=== PATIENT | female | born 1930 | race Caucasian/White ===

== ENCOUNTER → 2017-04-25 | Day surgery (SDC) | payer MEDICARE, OTHER ==
[~2017-04-25] MED LIST: ACETAMINOPHEN325 MG PO; ALLEGRA; AMBIEN CR; AMBIEN CR PO; AMBIEN12.5 M1 PO; ASPIRIN81 M2 PO; ASPIRINEC PO; ATENOLOL PO; B-COMPLEX W/VIT1 TA1 PO; BENICAR HCT 40-1 TA1; BENICAR HCT 40-1 TA1 PO; BENICAR HCT 40-1 TA2; BENICAR PO; BISACODYL EC5 MG PO; BUMETANIDE2 M1 PO; BUMEX PO; BUMEX2 MG PO; CALCIUM 600 +1 EAC3 PO; CALTRATE PLUS T1 TAB; CERTAGEN PO; COUMADIN PO; COUMADIN3 MG PO; DICLOFENAC; DICLOFENAC PO; DIFLUCAN PO; ECOTRIN81 M1 PO; EQUATE VISION; FEMARA2.5 MG; FERROUS SULFATE PO; FISH OIL 1,0001 CAP PO; FISH OIL 1,001000 MG PO; FISH OIL 1,2001 EAC1 PO; FLEXERIL10 MG PO; HYDROCODON-ACE1 EAC5 PO; HYDROCODON-ACE1 EAC7 PO; HYDROCODON-ACE1 EACH PO; HYDROCODONE-APA1 T56 PO; IRON PO; IRON1 TA1 PO; IRON45 MG PO; LEVAQUIN; LORTAB 5/500 TA1 TA1 PO; MACRODANTIN PO; METOPROLOL SUCC25 MG PO; MILK OF MAGNESIA PO; MOBIC PO; MULTI-VITAMIN1 TAB; NIACIN PO; OMEPRAZOLE40 M1 PO; PRAVACHOL PO; PREDNISONE10 MG PO; PREVACID; PROTONIX PO; RESTASIS32 EA; RESTASIS32 EA OU; SKELAXIN PO; STOOL SOFTENER50 MG PO; SULAR PO; SULAR20 MG PO; VICODIN 5/1 TAB 5/50 PO; VISION; VISION PO; VIT C; VIT E PO; VITAMIN B-121000 MCG PO; VITAMIN B122500 MCG PO; VITAMIN B6 PO; VITAMIN C PO; VITAMIN E400 UNI4 PO; VOLTAREN25 MG PO; [UNRECOGNIZED DRUG - OTHER]
--- NOTE | ~2017-04-25 | OR ---
Unit #: [id number] #: [id number] Patient: JOSETTE TAVAREZ [id number] [address] [place], [place] [address] [id number] O MR#: [id number] NAME: JOSETTE TAVAREZ. ROOM: Date of Procedure: 04/25/2017 Admission Date: 04/25/2017 Surgeon: Michael Patel M.D. : 1930 Primary Care Physician: Guille Ford M.D. SUR[facility]ERY CENTER OPERATIVE NOTE PROCEDURE PERFORMED Lumbar epidural steroid injection under x-ray guided needle placement. PREOPERATIVE DIAGNOSES 1. Acute lumbar radiculitis. 2. Spinal stenosis, lumbosacral spine. 3. Degenerative joint disease, lumbosacral spine. 4. Degenerative disk disease, lumbosacral spine. INDICATIONS FOR PROCEDURE The patient presents today with the years long history of lumbar radicular pain, which has been variously treated with various degrees of success over the years with conservative measures. Over the course of the past few months, the patient states her pain has begun to increase in a crescendo pattern with her radiculitis becoming more pronounced as well as becoming right-sided as well as left-sided. She has failed to respond to her usual ongoing conservative measures during these time periods, which include both nonsteroidal anti-inflammatories and physical therapy. She presents today referred for epidural steroid injection. After discussing risks and benefits of proceeding today with an empiric epidural steroid injection at the L4-L5 level with CT scan prior to next visit, the patient agreed this would be the appropriate course of action. DESCRIPTION OF PROCEDURE She was then taken to the operating room, where she was prepped and draped in a sterile manner. Standard monitors were applied. She refused all forms of sedation and lumbar epidural space accessed at L4-L5 level using loss of resistance technique and x-ray guidance. Needle placement was confirmed with injection of 2 mL of Omnipaque. There was good superior and inferior flow at this L4-L5 level access point. Following successful needle placement confirmation, the patient received an injectate containing 4 mL normal saline and 80 mg of methylprednisolone. She tolerated this procedure well. She was discharged home with followup instructions, which include return to this clinic on 05/02/2017. She is to call us if her CT scan would not be completed by that date and we will reschedule. Dictated by... Rosa Hudson/mir Unit #: [id number] #: [id number] Patient: JOSETTE TAVAREZ TD: 04/26/2017 03:20 JOB #: [id number] CC: Arthur Ellington M.D. SUR[facility]ERY CENTER OPERATIVE NOTE Page 1 of 1 X Chino Patel MD X PROCEDURE OPERATIVE NOTE
== END | disposition home or self-care (01) ==
LOC: CCSC 12:50
DX: M51.17 Intervertebral disc disorders with radiculopathy, lumbosacral region (principal); M47.27 Other spondylosis with radiculopathy, lumbosacral region; M48.07 Spinal stenosis, lumbosacral region; K21.9 Gastro-esophageal reflux disease without esophagitis; M19.90 Unspecified osteoarthritis, unspecified site; Z87.01 Personal history of pneumonia (recurrent); Z86.11 Personal history of tuberculosis; Z88.1 Allergy status to other antibiotic agents; Z88.2 Allergy status to sulfonamides; Z88.6 Allergy status to analgesic agent; Z88.8 Allergy status to other drugs, medicaments and biological substances; Z79.82 Long term (current) use of aspirin; Z79.891 Long term (current) use of opiate analgesic; Z79.899 Other long term (current) drug therapy; Z90.12 Acquired absence of left breast and nipple; Z90.49 Acquired absence of other specified parts of digestive tract; Z90.710 Acquired absence of both cervix and uterus; Z96.653 Presence of artificial knee joint, bilateral; Z98.41 Cataract extraction status, right eye; Z98.42 Cataract extraction status, left eye; Z98.890 Other specified postprocedural states
CPT/HCPCS: J1040; J2250

== ENCOUNTER → 2017-05-03 | Outpatient (CLI) | payer MEDICARE, OTHER ==
--- NOTE | ~2017-05-03 | CT98 ---
[facility] A Service of [facility] RADIOLOGY TEXT RESULTS PATIENT: JOSETTE TAVAREZ LOCATION: [facility] : 30 UNIT #: [id number] AGE: [address]: Chino Patel MD SEX: F ORDER DR: [id number] [facility] [address] [place], [place] [address] [id number] O MR#: [id number] Acc #: [id number] NAME: JOSETTE TAVAREZ. : 1930 SEX: F STUDY DATE/TIME: 05/03/2017 12:47 UNIT: [facility] ROOM: STUDY DESCRIPTION: CT Lumbar Spine Wo Cont Attending Physician: Michael Patel M.D. Referring Physician: Michael Patel M.D. Ordering Physician: Michael Patle M.D. Primary Care Physician: Guille Ford M.D. MEDICAL IMAGING REPORT This report is preliminary unless electronic signature is present EXAM Lumbar spine CT. HISTORY Chronic low back pain over the past 5 years. TECHNIQUE Axial images were obtained from the lower thoracic spine to the sacrum and evaluated at bone and soft tissue windows with multiplanar reformats and compared to a previous examination from 05/03/2011. This CT exam was performed with one or more of the following radiation dose reduction techniques: automatic exposure control, adjustment of mA and/or kV according to patient size, and iterative reconstruction. FINDINGS Advanced degenerative changes are seen throughout the lumbar spine accompanied by a mid lumbar dextroscoliosis. Since the previous examination, the degree of scoliosis has worsened. There is significant progression of degenerative disc disease across L1-L2, especially on the right side of the disc which has collapsed progressively with increased osteophyte formation. At L2-3, there is lateral subluxation of L2 to the left with respect to L3. This is unchanged. There is more collapse of the left side of L3 associated with the endplate degenerative changes compared to the previous exam and there is a little more osteophyte formation. At L3-4, degenerative changes in the disc are stable. At L4-5, there is lateral subluxation of L4 to the right with respect to L5 and this degree of subluxation is unchanged. There is a new Schmorl node in the upper endplate of L5. At L5-S1, there is advanced degenerative change showing little progression from the previous exam. At L1-L2, right foraminal narrowing is slightly worse since the previous examination. [facility] A Service of [facility] RADIOLOGY TEXT RESULTS PATIENT: JOSETTE TAVAREZ LOCATION: [facility] : 30 UNIT #: [id number] AGE: [address]: Chino Patel MD SEX: F ORDER DR: At L2-L3. right foraminal narrowing is also slightly increased. Central stenosis at L2-3 has worsened. There is more ossification of the ligamentum flava at this level. At L3-4, central stenosis is moderate but unchanged. At L4-5, central stenosis is moderately severe and slightly worse since the previous examination from progression of disc and facet disease. At L5-S1, there is moderate central stenosis that is unchanged. No fractures are seen. No destructive bone lesions are noted. IMPRESSION Advanced multilevel lumbar degenerative disc and facet disease as described above level by level. There has been significant progression of disease since the previous scan 6 years ago, particularly involving the right side of L1-L2, the left side of L2-3, and the right side of L4-5. Subluxation of L2 laterally with respect to L3 and of L4 laterally with respect to L5 has not changed significantly. No acute fractures are seen. Central spinal stenosis is present generally to a moderate to moderately severe degree at L2-3, L3-4, and L4-5 with slight progression since the previous exam. STAT * RESULT Dictated by... Juan Diego Fairbanks M.D. THIS IS AN ELECTRONICALLY VERIFIED REPORT Juan Diego Fairbanks M.D. at 05/05/2017 10:23 AM KRIS/josse TD: 05/04/2017 14:27 JOB #: [id number] MEDICAL IMAGING REPORT Page 1 of 1 COPY
== END | disposition home or self-care (01) ==
LOC: CCAT 11:42
DX: M51.16 Intervertebral disc disorders with radiculopathy, lumbar region (principal)
CPT/HCPCS: 72131

== ENCOUNTER → 2017-05-04 | Day surgery (SDC) | payer MEDICARE, OTHER ==
--- NOTE | ~2017-05-04 | OR ---
Unit #: [id number] #: [id number] Patient: JOSETTE TAVAREZ [id number] [address] [place], [place] [address] [id number] O MR#: [id number] NAME: JOSETTE TAVAREZ. ROOM: Date of Procedure: 05/04/2017 Admission Date: 05/04/2017 Surgeon: Michael Patel M.D. : 1930 Attending Physician: Michael Patel M.D. Primary Care Physician: Guille Ford M.D. SURGERY CENTER OPERATIVE NOTE PROCEDURE PERFORMED Lumbar epidural steroid injection under x-ray guided needle placement. PREOPERATIVE DIAGNOSES 1. Acute lumbar radiculitis. 2. Spinal stenosis, lumbosacral spine. 3. Degenerative joint disease, lumbosacral spine. 4. Degenerative disk disease, lumbosacral spine. INDICATIONS FOR PROCEDURE The patient presents today status post one previous empiric epidural steroid injection for an acute radiculitis, which had failed to respond to conservative therapy. The patient states that she got very little relief from that epidural steroid injection; however, in the interim between that injection and today, she has had a repeat of her diagnostic studies which show worsening at L4-L5 and L2-L3. After discussing risks and benefits of proceeding today with a second epidural steroid injection utilizing the dual needle approach at the above-mentioned levels, the patient agreed this would be the appropriate course of action. We also discussed return to this clinic on 08/10/2017 for long-term followup. DESCRIPTION OF PROCEDURE Following these discussions, the patient was taken to the operating room, where she was prepped and draped in a sterile manner. Standard monitors were applied. She refused all forms of sedation and lumbar epidural space accessed at the L4-L5 and L2-L3 levels using loss of resistance technique and x-ray guidance. There was good superior and inferior flow at both levels as needle placement was confirmed with the injection of 2 mL of Omnipaque. Total x-ray time for this dual needle placement was 16 seconds. Following successful needle placement confirmation at the above described levels, the patient received an injectate containing 4 mL normal saline and 40 mg of methylprednisolone at each level for a total injectate volume of 8 mL of normal saline and 80 mg of methylprednisolone. She tolerated this procedure well. She was discharged home with followup instructions, which include return dates as described above. Dictated by... Rosa Hudson/mir TD: 05/05/2017 00:28 Unit #: [id number] #: [id number] Patient: JOSETTE TAVAREZ JOB #: [id number] CC: Arthur Ellington M.D. SURGERY CENTER OPERATIVE NOTE Page 1 of 1 X Chino Patel MD X PROCEDURE OPERATIVE NOTE
== END | disposition home or self-care (01) ==
LOC: CCSC 13:28
DX: M51.17 Intervertebral disc disorders with radiculopathy, lumbosacral region (principal); M47.27 Other spondylosis with radiculopathy, lumbosacral region; M48.07 Spinal stenosis, lumbosacral region; K21.9 Gastro-esophageal reflux disease without esophagitis; Z87.01 Personal history of pneumonia (recurrent); Z86.11 Personal history of tuberculosis; Z88.1 Allergy status to other antibiotic agents; Z88.2 Allergy status to sulfonamides; Z88.6 Allergy status to analgesic agent; Z88.8 Allergy status to other drugs, medicaments and biological substances; Z79.891 Long term (current) use of opiate analgesic; Z79.82 Long term (current) use of aspirin; Z79.899 Other long term (current) drug therapy; Z90.49 Acquired absence of other specified parts of digestive tract; Z90.12 Acquired absence of left breast and nipple; Z90.710 Acquired absence of both cervix and uterus; Z96.653 Presence of artificial knee joint, bilateral; Z98.41 Cataract extraction status, right eye; Z98.42 Cataract extraction status, left eye; Z98.890 Other specified postprocedural states
CPT/HCPCS: J1040; J2250

== ENCOUNTER 2017-05-27 21:12 | Emergency (ER) | payer MEDICARE, OTHER ==
--- NOTE | ~2017-05-27 | CR72 ---
[facility] A Service of [facility] RADIOLOGY TEXT RESULTS PATIENT: JOSETTE TAVAREZ LOCATION: [facility] : 30 UNIT #: [id number] AGE: [address]: Juan Diego Jang MD SEX: F ORDER DR: [id number] [facility] [address] [place], [place] [address] [id number] E MR#: [id number] Acc #: [id number] NAME: JOSETTE TAVAREZ. : 1930 SEX: F STUDY DATE/TIME: 05/27/2017 22:43 UNIT: [facility] ROOM: STUDY DESCRIPTION: CR Chest Single View Portable Attending Physician: Juan Diego Jang M.D. Ordering Physician: Juan Diego Jang M.D. Primary Care Physician: Guille Ford M.D. MEDICAL IMAGING REPORT This report is preliminary unless electronic signature is present EXAM Portable chest INDICATIONS Cough and shortness of air for the past few days. PROCEDURE Frontal view of the chest COMPARISON 10/25/2014 FINDINGS Heart size is unchanged. There is no new dense consolidation visible pleural fluid or pneumothorax. IMPRESSION No active process. No change since 2013 Dictated by... Mykel Barragan M.D. THIS IS AN ELECTRONICALLY VERIFIED REPORT Mykel Barragan M.D. at 05/28/2017 9:56 PM ANNALEE/patricia TD: 05/28/2017 03:59 JOB #: [id number] MEDICAL IMAGING REPORT Page 1 of 1 COPY
--- NOTE | ~2017-05-27 | EKG ---
PATIENT: JOSETTE TAVAREZ UNIT #: [id number] Ventricular Rate: 96 BPM Atrial Rate: 96 BPM P-R Interval: 206 ms QRS Duration: 96 ms Q-T Interval: 370 ms QTC Calculation(Bezet): 467 ms P Matthews: 97 degrees Calculated R Matthews: 3 degrees Calculated T Matthews: 14 degrees Diagnosis Line: Sinus rhythm with occasional Premature ventricular Diagnosis Line: complexes Diagnosis Line: Low voltage QRS Diagnosis Line: Incomplete right bundle branch block Diagnosis Line: Cannot rule out Inferior infarct , age Diagnosis Line: undetermined Diagnosis Line: Abnormal ECG Diagnosis Line: When compared with ECG of 25-OCT-2014 16:40, Diagnosis Line: Premature ventricular complexes are now Present Diagnosis Line: Minimal criteria for Inferior infarct are now Diagnosis Line: Present Diagnosis Line: T wave inversion now evident in Inferior leads Diagnosis Line: Confirmed by ZUHAIR TURK MD ([id number]) on Diagnosis Line: 05/28/2017 2:00:56 PM INTERPRETING MD: BURKE KOWALSKI
[2017-05-27 22:47] LABS: POC - CKMB 3.3 ng/mL (0.0-7.9); POC - TROPONIN <0.05 ng/mL (<=0.05)
[2017-05-27 22:56] LABS: BASOPHIL# 0.1 X10e3 (0-0.3); BASOPHIL% 0.7 % (0-2.5); EOSINOPHIL# 0.4 X10e3 (0-0.7); EOSINOPHIL% 4.8 % (0.0-7.0); HEMATOCRIT 34.6 % (35.0-45.0); HEMOGLOBIN 11.5 gm/dL (12.0-16.0); LYMPHOCYTE# 2.4 X10e3 (1.0-3.5); LYMPHOCYTE% 27.9 % (17.0-45.0); MEAN CELL VOLUME 86.4 FL (83-96); MEAN CORPUSCULAR HEMOGLOBIN 28.8 PG (28-34); MEAN CORPUSCULAR HGB CONC 33.3 g/dL (30-36); MEAN PLATELET VOLUME 7.8 FL (6.5-11.5); MONOCYTE% 11.5 % (3.0-12.0); NEUTROPHIL# 4.8 X10e3 (1.5-7.1); NEUTROPHIL% 55.1 % (40-75); PLATELET COUNT 286 X10e3 (140-420); RED BLOOD COUNT 4.01 X10e (3.90-5.30); WHITE BLOOD COUNT 8.6 X10e3 (4.0-10.5)
[2017-05-27 22:57] LABS: DIFF IND NO
[2017-05-27 23:12] LABS: PARTIAL THROMBOPLASTIN TIME 33.1 SECONDS (23.5-31.3); PROTHROMBIN TIME (PATIENT) 10.8 SECONDS (10.0-11.7)
[2017-05-27 23:19] LABS: ALBUMIN SERUM 3.7 g/dL (3.5-5.0); BILIRUBIN, DIRECT 0.1 mg/dL (0.0-0.2); BILIRUBIN,INDIRECT 0.4 mg/dL (0.0-0.9); BILIRUBIN,TOTAL 0.5 mg/dL (0.2-2.0); BUN/CREATININE RATIO 10.83; CALCIUM SERUM 8.9 mg/dL (8.4-10.2); CREATININE SERUM 1.2 mg/dL (0.6-1.4); GLOM FILT RATE Estimated 40.9 mL/min (>60); POTASSIUM 3.3 mmol/L (3.5-5.1); PROTEIN TOTAL SERUM 7.1 g/dL (6.0-8.3)
[2017-05-28 00:19] LABS: POC - CKMB 2.4 ng/mL (0.0-7.9); POC - TROPONIN <0.05 ng/mL (<=0.05)
== END 2017-05-28 00:45 | disposition home or self-care (01) ==
LOC: CED 21:12
PROVIDERS: Emergency Medicine
DX: I50.9 Heart failure, unspecified (principal); Z88.2 Allergy status to sulfonamides; Z88.1 Allergy status to other antibiotic agents; Z88.8 Allergy status to other drugs, medicaments and biological substances
CPT/HCPCS: 36415; 71010; 80048; 80076; 82553; 83880; 84484; 85025; 85610; 85730; 93005; 96374; 99285